=== PATIENT | female | born 1995 | race Caucasian/White ===

== ENCOUNTER 2016-08-12 15:07 | Inpatient (IN) | payer MEDICAID ==
[~2016-08-12] VITALS: Ht 152.4 cm; Wt 57.2 kg
[~2016-08-12 15:07] MED LIST: nyquil; tylenol
[2016-08-12 15:13] VITALS: BP 116/71
--- NOTE | 2016-08-12 15:16 | NUR ---
Patient ambulated to bed 02.
--- NOTE | 2016-08-12 15:20 | NUR ---
PT PRESENTS TO ER W/C/O EPIGASTRIC PAIN X6 WEEKS. W/ PAIN SCALE OF 9/10 THAT RADIATES TO HER BACK.HX GERD.PT STATES SHE TOOK OMEPRAZOLE BUT DIDN'T HELP.PT VOMITTED 2X LAST NOC.PT IS AAOX4;NO ACUTE DISTRESS NOTED AT THIS TIME;DENIES CP/SOB/FEVER/COUGH.NEEDS ATTENDED;SAFETY PRECAUTION INSTITUTED;HOB ELEVATED; MADE AWARE OF PT'S CONDITION.
--- NOTE | 2016-08-12 15:38 | NUR ---
Note undone in EDM - 08/12/16 at 1540 by DHEERAJ Patient discharged with v/s stable. Written and verbal after care instructions given and explained. Patient alert, oriented and verbalized understanding of instructions. Ambulatory with steady gait. All questions addressed prior to discharge. ID band removed. Patient advised to follow up with PMD. Rx of TAMIFLU AND ZOFRAN given. Patient educated on indication of medication including possible reaction and side effects. Opportunity to ask questions provided and answered.ENCOURAGED PT TO INCREASE FLUID INTAKE AND PT AGREED TO IT.
--- NOTE | 2016-08-12 15:51 | NUR ---
PT LYING ON BED COMFORTABLY;NO ACUTE DISTRESS NOTED AT THIS TIME;WILL CONTINUE TO MONITOR PT.
--- NOTE | 2016-08-12 15:57 | NUR ---
Dr. Park evaluating patient at bedside.
[2016-08-12] MEDS ORDERED: KETOROLAC 60 MG/2 ML VIAL IM ONE (16:05)
[2016-08-12] MEDS ORDERED: ONDANSETRON 4 MG ODT PO ONE (16:05)
[2016-08-12] MEDS ORDERED: FAMOTIDINE 20 MG TAB PO ONE (16:05)
--- NOTE | 2016-08-12 17:26 | NUR ---
US AT BEDSIDE
--- NOTE | 2016-08-12 17:47 | NUR ---
CALLED [facility] TO GIVE REPORT.THEY WILL CALL BACK.
--- NOTE | 2016-08-12 17:55 | NUR ---
Patient will be admitted to care of DR AGGARWAL. Admited to [facility]. Will go to room 112 B. Belongings list completed. Report to MOIZ PADRON.
[2016-08-12] MEDS ORDERED: LORazepam 2 MG/ML VIAL IVP PRN (19:30)
[2016-08-12] MEDS: DEXT 5% /NACL 0.9% 1,000 ML IV SCH (19:30)
[2016-08-12] MEDS ORDERED: ONDANSETRON 4 MG/2 ML VIAL IVP PRN (19:30)
[2016-08-12 19:35] VITALS: BP 99/54
--- NOTE | 2016-08-12 19:35 | NUR ---
Admitted from ER TO MED SURGICAL UNIT, with chief complaint of ABDOMINAL PAIN FOR 2 DAYS, 20 y/o ,Female, Cooperative, AWAKE, A/OX4. RESPIRATION EVEN AND UNLABORED, ABDOMEN WITH POSITIVE BOWEL SOUNDS ON ALL QUADRANTS. SALINE LOCK AT THE LEFT AC G20 PATENT AND INTACT. HEAD TO TOE ASSESSMENT DONE WITH CHARGE NURSE DESIREE, SKIN INTACT. oriented to call light, bed, phone,television, bathroom, smoking policy,visiting hours, procedures, ID bracelet on. Belongings list checked. PAIN IN THE ABDOMEN 07/17, WILL MEDICATE ORDERED. PLAN OF CARE FOR THE SHIFT DISCUSSED. VERBALIZED UNDERSTANDING.
--- NOTE | 2016-08-12 20:00 | NUR ---
Patient's Plan of Care was discussed and reviewed with RAPHAEL: AMILCAR.
[2016-08-12 22:37] VITALS: BP 107/61
[2016-08-12] MEDS: MORPHINE SULFATE 2 MG/ML SYR IVP PRN (22:38)
[2016-08-13] VITALS: BP 108/62
[2016-08-13 02:43] VITALS: BP 117/69
[2016-08-13] MEDS: MORPHINE SULFATE 4 MG/ML SYR IVP PRN ×5 (02:50→23:26)
[2016-08-13] MEDS: DEXT 5% /NACL 0.9% 1,000 ML IV SCH ×4 (04:29→19:30)
--- NOTE | 2016-08-13 06:21 | NUR ---
VOMITED MODERATE AMOUNT OF SOLID FOOD, MEDICATED WITH ZOFRAN 4 MG. IVP BY MOIZ ROSALES.
--- NOTE | 2016-08-13 06:51 | NUR ---
RESTING IN BED, NO N/V NOTED.
--- NOTE | 2016-08-13 07:10 | NUR ---
RECEIVED REPORT FROM NIGHT NURSE. PT IS AAOX4, PT IS ON ROOM AIR, IV TO LEFT AC 20G, NO S/S OF RESPIRATORY DISTRESS OR DISCOMFORT NOTED. PT CURRENTLY RESTING IN BED. INITIAL ASSESSMENT COMPLETED, REVIEWED PLAN OF CARE WITH PT PT VERBALIZED UNDERSTANDING, ALL SAFETY PRECAUTIONS MET, ALL NEEDS MET. CALL LIGHT WITHIN REACH. WILL CONTINUE TO MONITOR.
--- NOTE | 2016-08-13 07:10 | NUR ---
CONDITION REMAIN STABLE. ALL NEEDS ATTENDED. ENDORSED TO MOIZ GONZALEZ FOR CONTINUITY OF CARE.
[2016-08-13 08:00] VITALS: BP 126/71
--- NOTE | 2016-08-13 08:23 | NUR ---
PATIENT HAS BEEN SCREENED AND CATEGORIZED MODERATE NUTRITION RISK. PATIENT WILL BE SEEN WITHIN 3-5 DAYS OF ADMISSION. 08/15/16-08/17/[address]
--- NOTE | 2016-08-13 09:15 | NUR ---
PT CURRENTLY SLEEPING, CALL LIGHT WITHIN REACH. WILL CONTINUE TO MONITOR.
--- NOTE | 2016-08-13 11:02 | NUR ---
CHECKED IN ON PT, PT SLEEPING AT THIS TIME. FAMILY AT BEDSIDE. CALL LIGHT WITHIN REACH. WILL CONTINUE TO MONITOR.
--- NOTE | 2016-08-13 13:00 | NUR ---
CHECKED IN ON PT, PT C/O ABD PAIN 10, WILL MEDICATE PER MD ORDERS. CALL LIGHT WITHIN REACH. WILL CONTINUE TO MONITOR. Addendum: 08/13/16 at 1308 by Yolanda Ibarra RN BP 117/68 HR 92
--- NOTE | 2016-08-13 14:45 | NUR ---
PT CURRENTLY SLEEPING, FAMILY AT BEDSIDE. CALL LIGHT WITHIN REACH. WILL CONTINUE TO MONITOR.
[2016-08-13 16:00] VITALS: BP 110/71
--- NOTE | 2016-08-13 17:20 | NUR ---
DUE MEDICATION GIVEN, ASSISTED PT TO RESTROOM AND BACK TO BED , PT C/O ABD PAIN 01/14 WILL MEDICATE PER MD ORDERS. CALL LIGHT WITHIN REACH. WILL CONTINUE TO MONITOR.
[2016-08-13] MEDS: AMPICILLIN/SULBACTAM 3 GM in NACL 0.9% 100 ML IV SCH ×2 (17:22→23:27)
--- NOTE | 2016-08-13 18:45 | NUR ---
PT CURRENTLY RESTING IN BED. CALL LIGHT WITHIN REACH.
--- NOTE | 2016-08-13 19:20 | NUR ---
ENDORSED PLAN OF CARE TO NIGHT NURSE. PT IN STABLE CONDITION
--- NOTE | 2016-08-13 19:21 | NUR ---
RECD. RESTING IN BED, AWAKE, A/OX4. RESPIRATION EVEN AND UNLABORED. WATCHING TV. IV OF D5NS AT 125 ML/HR INFUSING, LEFT AC G 20. NPO, AWARE OF PLAN ERCP FOR TOMORROW. PLAN OF CARE FOR THE SHIFT DISCUSSED. VERBALIZED UNDERSTANDING. DENIES PAIN 0/10.
[2016-08-14] VITALS: BP 106/64
--- NOTE | 2016-08-14 | NUR ---
NPO PAST MIDNIGHT FOR ERCP.
--- NOTE | 2016-08-14 01:54 | NUR ---
Patient's Plan of Care was discussed and reviewed with SUBSTATION OPERATOR APPRENTICE: AMILCAR MCCRAY
[2016-08-14] MEDS: DEXT 5% /NACL 0.9% 1,000 ML IV SCH ×4 (02:33→17:48)
[2016-08-14 05:29] VITALS: BP 106/62
[2016-08-14] MEDS: MORPHINE SULFATE 2 MG/ML SYR IVP PRN ×2 (05:30→09:25)
[2016-08-14] MEDS: AMPICILLIN/SULBACTAM 3 GM in NACL 0.9% 100 ML IV SCH ×4 (05:33→23:22)
--- NOTE | 2016-08-14 07:25 | NUR ---
TAKEN TO OR FOR ERCP VIA BED, ACCOMPANIED BY OR NURSE. CONDITION REMAIN STABLE.
[2016-08-14] MEDS ORDERED: PROPOFOL 200 MG/20 ML VIAL IV ONE (07:51)
[2016-08-14] MEDS ORDERED: ONDANSETRON 4 MG/2 ML VIAL IVP PRN (08:15)
[2016-08-14] MEDS ORDERED: HYDROmorphone 1 MG/ML AMP IVP PRN (08:15)
[2016-08-14] MEDS ORDERED: ONDANSETRON 4 MG/2 ML VIAL ONE (08:40)
[2016-08-14 09:15] VITALS: BP 111/68
--- NOTE | 2016-08-14 09:15 | NUR ---
PT RETURNED FROM ERCP PROCEDURE. SBAR RECEIVED FROM OR NURSE. PT C/O ABDOMINAL PAIN, WILL MEDICATE ORDERED. VITAL SIGNS STABLE. NO S/S OF RESPIRATORY DISTRESS. IV SITE PATENT AND INTACT. AAOX4. CALL LIGHT WITHIN REACH. SAFETY MEASURES ENSURED. WILL CONTINUE TO MONITOR.
--- NOTE | 2016-08-14 11:02 | NUR ---
DR. ARAGON MADE AWARE OF SURGICAL CONSULTATION.
--- NOTE | 2016-08-14 12:56 | NUR ---
PT RESTING IN BED. C/O ABDOMINAL PAIN. WILL MEDICATE ORDERED.
[2016-08-14] MEDS: MORPHINE SULFATE 4 MG/ML SYR IVP PRN ×3 (13:12→22:38)
--- NOTE | 2016-08-14 14:30 | NUR ---
PT SLEEPING. NO S/S OF ACUTE DISTRESS. CALL LIGHT WITHIN REACH. WILL CONTINUE TO MONITOR.
[2016-08-14 16:00] VITALS: BP 104/52
--- NOTE | 2016-08-14 16:00 | NUR ---
PT HAS LOW GRADE FEVER 100.2. PAGED. PT RESTING IN BED. NO S/S OF ACUTE DISTRESS.
[2016-08-14] MEDS ORDERED: ACETAMINOPHEN 650 MG SUPP RC PRN (16:55)
--- NOTE | 2016-08-14 17:10 | NUR ---
RECHECKED PATIENTS TEMPERATURE. 99.4, RESTING IN BED. NO S/S OF ACUTE DISTRESS.
--- NOTE | 2016-08-14 17:15 | NUR ---
SPOKE WITH DR. AGGARWAL REGARDING FEVER AND LABS. NEW ORDERS RECEIVED, WILL CONTINUE TO MONITOR.
[2016-08-14] MEDS ORDERED: KCL 20 MEQ/WATER INJ PREMIX 100 ML IV SCH (17:30)
--- NOTE | 2016-08-14 19:15 | NUR ---
RECEIVED REPORT FROM RN NEREIDA LUO AT BEDSIDE. INITIAL ASSESSMENT COMPLETED. PT AAOX4. PT AMBULATORY, PT HAS IV TO LEFT AC G 20; ASYMPTOMATIC, PATENT AND INTACT INFUSING FLUIDS WELL. PT'S SKIN IS INTACT. PT DENIES PAIN OR DISCOMFORT AT THIS TIME. PT WAS MEDICATED FOR PAIN EARLIER BY DAY SHIFT NURSE. ORIENTED PT TO ROOM AND SURROUNDINGS AND USE OF CALL LIGHT. EXPLAINED PLAN OF CARE TO PT AND SHE VERBALIZES UNDERSTANDING. WILL CONTINUE TO MONITOR PT.
--- NOTE | 2016-08-14 19:16 | NUR ---
ENDORSED PLAN OF CARE TO MOIZ WALLS AT PT BEDSIDE. PT RESTING IN BED. NO S/S OF ACUTE DISTRESS.
[2016-08-14] MEDS ORDERED: DEXTROSE 50% 50 ML SYR IVP PRN (19:25)
[2016-08-14] MEDS ORDERED: INSULIN LISPRO SLIDING SCALE 100 UNITS/ML VIAL SUBQ PRN (19:25)
--- NOTE | 2016-08-14 19:25 | NUR ---
DR. JASEN Leo IN TO SEE PT. WILL FOLLOW UP ON ORDERS.
[2016-08-14] MEDS: BLOOD GLUCOSE MONITORING 1 DEV DEV FS SCH (21:17)
--- NOTE | 2016-08-14 22:33 | NUR ---
PT COMPLAINING OF ABDOMINAL PAIN 01/14. VS STABLE, WILL MEDICATE ORDERED.
--- NOTE | 2016-08-14 22:43 | NUR ---
PT MEDICATED FOR PAIN. VS: BP 116/67, HR 78, 02 98% T 98.3.
--- NOTE | 2016-08-14 22:52 | NUR ---
RECEIVED REPORT FROMTITI RN, FOR CONTINUITY OF CARE. PATIENT RESTING IN BED. NO RESPIRATORY DISTRESS, SOB, OR DISCOMFORT. CALL LIGHT LEFT WITHIN REACH, WILL CONTINUE TO MONITOR.
--- NOTE | 2016-08-14 22:52 | NUR ---
ENDORSED PT IN STABLE CONDITION TO MOIZ ROSALES FOR CONTINUITY OF CARE.
[2016-08-15] VITALS: BP 110/68
--- NOTE | 2016-08-15 00:56 | NUR ---
PATIENT IN BED, SLEEPING. NO RESPIRATORY DISTRESS, SOB, OR DISCOMFORT. CALL LIGHT LEFT WITHIN REACH, WILL CONTINUE TO MONITOR.
--- NOTE | 2016-08-15 03:06 | NUR ---
PATIENT ASLEEP. NO RESPIRATORY DISTRESS, SOB, OR DISCOMFORT. CALL LIGHT LEFT WITHIN REACH, WILL CONTINUE TO MONITOR.
[2016-08-15] MEDS: DEXT 5% /NACL 0.9% 1,000 ML IV SCH ×3 (03:47→20:15)
[2016-08-15] MEDS: MORPHINE SULFATE 4 MG/ML SYR IVP PRN ×3 (05:24→14:42)
--- NOTE | 2016-08-15 05:35 | NUR ---
DR. MARGO VIGIL, SEEN PT. AND CHECK PT. CHART. Addendum: 08/15/16 at 1827 by Cordell Hargrove LVN WRONG ENTRY: ENTERED WRONG TIME.
[2016-08-15] MEDS: AMPICILLIN/SULBACTAM 3 GM in NACL 0.9% 100 ML IV SCH ×3 (06:13→17:44)
[2016-08-15] MEDS: BLOOD GLUCOSE MONITORING 1 DEV DEV FS SCH ×3 (06:14→16:34)
--- NOTE | 2016-08-15 06:16 | NUR ---
PATIENT SLEEPING. NO RESPIRATORY DISTRESS, SOB, OR DISCOMFORT. CALL LIGHT LEFT WITHIN REACH, WILL CONTINUE TO MONITOR.
--- NOTE | 2016-08-15 07:03 | NUR ---
ASSUMED CONTINUITY OF CARE. NO SIGNS AND SYMPTOMS OF ACUTE DISTRESS NOTED. INITIAL ASSESSMENT DONE. KEEP COMFORTABLE ON BED. EXPLAINED DIAGNOSIS, PLAN OF CARE, PAIN MANAGEMENT TEACHING, USE OF CALL LIGHT/BED/TV/BATHROOM. VERBALIZED UNDERSTANDING. CALL LIGHT WITHIN REACH.
--- NOTE | 2016-08-15 07:03 | NUR ---
REPORT GIVEN TO DAY NURSEJAXON. PATIENT RESTING IN BED, STABLE. NO RESPIRATORY DISTRESS, SOB, OR DISCOMFORT. ALL NEEDS ATTENDED TO DURING SHIFT, CALL LIGHT LEFT WITHIN REACH.
--- NOTE | 2016-08-15 07:04 | NUR ---
Patient's Plan of Care was discussed and reviewed with BRACELET MAKER NOVELTY: JAXON Sen
[2016-08-15 08:00] VITALS: BP 110/66
[2016-08-15 10:05] VITALS: BP 109/68
[2016-08-15 12:00] VITALS: BP 109/65
[2016-08-15 14:25] VITALS: BP 108/61
--- NOTE | 2016-08-15 17:35 | NUR ---
DR. ARAGON CAME, SEEN PT., AND CHECKED PT. CHART.
[2016-08-15] MEDS ORDERED: POTASSIUM CHLORIDE 10 MEQ TABER PO SCH (19:05)
--- NOTE | 2016-08-15 19:08 | NUR ---
BEDSIDE REPORT GIVEN TO MURIEL HERNÁNDEZ -MOIZ. IVF INFUSING WELL. IN STABLE CONDITION.
--- NOTE | 2016-08-15 19:30 | NUR ---
RECEIVED REPORT FROM AMANDA CLAIMS SERVICE ADJUSTOR AT BEDSIDE, PATIENT IS RESTING IN BED WITH VISITOR AT BEDSIDE, PATIENT STATED SHE WASNT ABLE TO TOLERATE HER FOOD WELL BECAUSE OF THE SALAD DRESSING BUT NO NAUSEA OR VOMITING AT THIS TIME, PATIENT IS ON ROOM AIR, NO SOB OR SIGN OF DISTRESS AT THIS TIME, IV IS TO LAC 20G PATENT AND INTACT, WITH IVF INFUSING WELL. PATIENT C/O PAIN, WILL ADMINISTER PAIN MEDS PER MD ORDER. DISCUSSED PLAN OF CARE WITH PATIENT, PATIENT VERBALIZED UNDERSTANDING, SAFETY MEASURES CHECKED, CALL LIGHT WITHIN REACH. WILL CONTINUE TO MONITOR.
[2016-08-15] MEDS ORDERED: cefTRIAXone 1,000 MG VIAL ONE (19:59)
[2016-08-15] MEDS: MORPHINE SULFATE 2 MG/ML SYR IVP PRN (20:14)
--- NOTE | 2016-08-15 20:19 | NUR ---
PM MEDS ADMINISTERED, PATIENT TOLERATED WELL, DR BLEVINS WAS IN TO SEE PATIENT. CALL LIGHT WITHIN REACH. WILL CONTINUE TO MONITOR
--- NOTE | 2016-08-15 22:05 | NUR ---
PATIENT RESTING IN BED, NO SIGN OF DISTRESS, CALL LIGHT WITHIN REACH. WILL CONTINUE TO MONITOR.
[2016-08-16] VITALS: BP 109/65
[2016-08-16] MEDS: AMPICILLIN/SULBACTAM 3 GM in NACL 0.9% 100 ML IV SCH ×5 (00:01→23:54)
[2016-08-16] MEDS: MORPHINE SULFATE 2 MG/ML SYR IVP PRN ×3 (00:32→10:18)
--- NOTE | 2016-08-16 00:45 | NUR ---
PATIENT RESTING IN BED, PATIENT C/O PAIN, MEDICATED PER MD ORDER, VITAL SIGNS STABLE, CALL LIGHT WITHIN REACH. WILL CONTINUE TO MONITOR.
--- NOTE | 2016-08-16 03:25 | NUR ---
PATIENT SLEEPING, NO SOB OR SIGN OF DISTRESS AT THIS TIME, CALL LIGHT WITHIN REACH. WILL CONTINUE TO MONITOR.
[2016-08-16] MEDS: DEXT 5% /NACL 0.9% 1,000 ML IV SCH ×3 (03:38→19:30)
--- NOTE | 2016-08-16 06:34 | NUR ---
PATIENT SLEEPING, NO SOB OR SIGN OF DISTRESS,CALL LIGHT WITHIN REACH. WILL CONTINUE TO MONITOR.
--- NOTE | 2016-08-16 07:11 | NUR ---
ENDORSED REPORT TO DAY PROFESSOR OF ASTRONOMY, PATIENT IN STABLE CONDITION.
--- NOTE | 2016-08-16 07:12 | NUR ---
Patient's Plan of Care was discussed and reviewed with TECHNICIAN ASSISTANT: JAXON Soria
[2016-08-16 08:00] VITALS: BP 109/54
[2016-08-16] MEDS ORDERED: ACETAMINOPHEN 325 MG TAB PO PRN (11:20)
[2016-08-16 12:00] VITALS: BP 107/66
--- NOTE | 2016-08-16 12:00 | NUR ---
VITALS SIGNS STABLE. NO C/O PAIN. WILL MONITOR.
[2016-08-16] MEDS: HYDROcodone/APAP 5/325 MG 1 TAB TAB PO PRN (15:18)
--- NOTE | 2016-08-16 16:40 | NUR ---
SEEN SLEEPING WELL. NO DIFFICULTY BREATHING NOTICED. CALL LIGHT WITHIN REACH.
--- NOTE | 2016-08-16 19:02 | NUR ---
DR. ARAGON CALLED BACK, GAVE T.O. FOR OBTAIN CONSENT FOR LAPAROSCOPIC CHOLECYSTECTOMY POSSIBLE OPEN POSSIBLE CHOLANGIOGRAM 08/17/16, AND NPO AFTER MIDNIGHT, READ BACK AND VERIFIED. INFORMED CHARGE NURSE KATINA MCCURDY.
--- NOTE | 2016-08-16 19:12 | NUR ---
BEDSIDE REPORT GIVEN TO MURIEL HERNÁNDEZ -MOIZ. IVF INFUSING WELL. IN STABLE CONDITION. ALSO ENDORSED ABOUT DR. ARAGON ORDER OF LAPAROSCOPIC CHOLECYSTECTOMY POSSIBLE OPEN POSSIBLE CHOLANGIOGRAM 08/17/16 AND NPO AFTER MIDNIGHT.
--- NOTE | 2016-08-16 19:30 | NUR ---
RECEIVED REPORT FROM AMANDA CUSTOMER STRATEGY MANAGER, PATIENT IS AAOX4 SITTING UP IN BED WITH VISITOR AT BEDSIDE, PATIENT IS ON ROOM AIR, NO SOB OR SIGN OF DISTRESS AT THIS TIME, SKIN IS INTACT, IV INFUSING WELL, PATENT AND INTACT, PATIENT DENIES PAIN AT THIS TIME, DISCUSSED PLAN OF CARE WITH PATIENT, PATIENT VERBALIZED UNDERSTANDING, CALL LIGHT WITHIN REACH, WILL CONTINUE TO MONITOR.
--- NOTE | 2016-08-16 19:45 | NUR ---
PER REPORT FROM DAY RADIO OPERATOR GROUND, PATIENT DID NOT WANT TO SIGN CONSENT FOR POSSIBLE PROCEDURE. CONFIRMED WITH PATIENT, PATIENT STATED SHE WANTED TO WAIT TO TALK TO THE DR BEFORE SHE SIGNS IT.
[2016-08-16 20:00] VITALS: BP 106/66
[2016-08-16] MEDS: HYDROcodone/APAP 10/325 MG 1 TAB TAB PO PRN (21:42)
--- NOTE | 2016-08-16 21:50 | NUR ---
PATIENT C/O PAIN , ADMINISTERED PAIN MED PER MD ORDER, NO SOB OR SIGN OF DISTRESS AT THIS TIME, CALL LIGHT WITHIN REACH. WILL CONTINUE TO MONITOR.
--- NOTE | 2016-08-17 00:20 | NUR ---
PATIENT UP RESTING IN BED, NO SOB OR SIGN OF DISTRESS AT THIS TIME, CALL LIGHT WITHIN REACH. WILL CONTINUE TO MONITOR.
--- NOTE | 2016-08-17 01:29 | NUR ---
PATIENT SLEEPING, NO SOB OR SIGN OF DISTRESS AT THIS TIME, CALL LIGHT WITHIN REACH. WILL CONTINUE TO MONITOR.
[2016-08-17 04:00] VITALS: BP 98/56
[2016-08-17] MEDS: DEXT 5% /NACL 0.9% 1,000 ML IV SCH ×3 (04:05→20:35)
--- NOTE | 2016-08-17 04:21 | NUR ---
PATIENT SLEEPING, NO SOB OR SIGN OF DISTRESS, VITAL SIGNS STABLE, CALL LIGHT WITHIN REACH. WILL CONTINUE TO MONITOR.
[2016-08-17] MEDS: AMPICILLIN/SULBACTAM 3 GM in NACL 0.9% 100 ML IV SCH ×4 (05:17→23:35)
[2016-08-17] MEDS: HYDROcodone/APAP 5/325 MG 1 TAB TAB PO PRN ×2 (05:45→20:44)
--- NOTE | 2016-08-17 07:26 | NUR ---
ENDORSED REPORT TO DAY RN AT BEDSIDE, PATIENT IN STABLE CONDITION.
--- NOTE | 2016-08-17 07:30 | NUR ---
RECEIVED PT RESTING COMFORTABLY IN BED, AAOX4, ABLE TO VERBALIZE NEEDS; NO COMPLAINTS OF PAIN, N/V, OR S/S ACUTE DISTRESS AT THIS TIME. PT WANTS TO SPEAK WITH SURGEON PRIOR TO SIGNING CONSENT FOR DR MARGO PETERS AWARE PER RN FACULTY RN. ROUTINE/PLAN OF CARE DISCUSSED AND REVIEWED, PT VERBALIZES UNDERSTANDING AND COMPLIANCE. IVF INFUSING TO LEFT AC, SITE ASYMPTOMATIC. SAFETY PRECAUTIONS OBSERVED AND MAINTAINED, ENCOURAGED PT TO CALL FOR ASSISTANCE NEEDED.
[2016-08-17 08:00] VITALS: BP 103/70
--- NOTE | 2016-08-17 10:00 | NUR ---
CONDITION REMAINS STABLE, PT RESTING QUIETLY IN BED. EDUCATION HANDOUT GIVEN TO PT. WILL CONTINUE TO MONITOR.
--- NOTE | 2016-08-17 11:20 | NUR ---
PAGED DR ARAGON AT THIS TIME.
--- NOTE | 2016-08-17 11:40 | NUR ---
PT SPOKE WITH DR ARAGON BY TELEPHONE. CONSENT SIGNED FOR ROSA WINKLER.
[2016-08-17] MEDS: BUPIVACAINE-MPF/EPI 0.25% 30 ML VIAL INJ ONE ×2 (11:58→16:32)
--- NOTE | 2016-08-17 12:11 | NUR ---
PT TAKEN TO OR AT THIS TIME IN STABLE CONDITION. SCHEDULED UNASYN IVPB GIVEN TO GENERAL MACHINISTMOIZ HORAN.
[2016-08-17] MEDS ORDERED: ROCURONIUM 50 MG/5 ML VIAL IV ONE (12:28)
[2016-08-17] MEDS ORDERED: LIDOCAINE 2% 100 MG/5 ML SYR IVP ONE (12:28)
[2016-08-17] MEDS ORDERED: KETOROLAC 30 MG/ML VIAL IVP ONE (12:28)
[2016-08-17] MEDS ORDERED: GLYCOPYRROLATE 0.2 MG/ML VIAL IV ONE (12:28)
[2016-08-17] MEDS ORDERED: DEXAMETHASONE 4 MG/ML VIAL IVP ONE (12:28)
[2016-08-17] MEDS ORDERED: SUCCINYLCHOLINE CHLORIDE 200 MG/10 ML VIAL IV ONE (12:28)
[2016-08-17] MEDS ORDERED: NEOSTIGMINE 1:1000 10 MG/10 ML VIAL IM ONE (12:28)
[2016-08-17] MEDS ORDERED: ONDANSETRON 4 MG/2 ML VIAL IVP ONE (12:28)
[2016-08-17] MEDS ORDERED: SEVOFLURANE 250 ML BTL INH ONE (12:28)
[2016-08-17] MEDS ORDERED: PROPOFOL 200 MG/20 ML VIAL IV ONE (12:28)
[2016-08-17] MEDS ORDERED: MIDAZOLAM 2 MG/2 ML VIAL ONE (12:37)
[2016-08-17] MEDS ORDERED: fentaNYL 0.05 MG/ML VIAL ONE (12:37)
[2016-08-17] MEDS ORDERED: HYDROmorphone 1 MG/ML AMP IVP PRN (13:00)
[2016-08-17] MEDS ORDERED: ONDANSETRON 4 MG/2 ML VIAL IVP PRN ×2 (13:00→13:55)
[2016-08-17] MEDS: HYDROmorphone PFS 2 MG/ML SYR ONE ×4 (14:20→14:50)
--- NOTE | 2016-08-17 14:27 | NUR ---
08/17/16 RD INITIAL ASSESSMENT COMPLETED PLEASE REFER TO NUTRITION ASSESSMENT UNDER CARE ACTIVITY FOR ESTIMATED NUTRITIONAL NEEDS. RD RECOMMENDATIONS: 1. CONTINUE NPO MEDICALLY APPROPRIATE PER MD. 2. IF/WHEN PT IS MEDICALLY STABLE TO BEGIN NUTRITION, CONSIDER REGULAR DIET. 3. RD WILL F/U 3-5 DAYS; MODERATE RISK. TREASURE REYES, RD
--- NOTE | 2016-08-17 14:45 | NUR ---
PT IS NOT CURRENTLY IN ROOM TO DO THE IS. WILL FOLLOW.
--- NOTE | 2016-08-17 15:05 | NUR ---
PT RETURNED FROM OR AT THIS TIME S/P LAP CATHI, AAOX4, VSS. ABD INCISIONSx4, DRESSINGS CLEAN AND DRY. DISCUSSED NARCOTIC AND POST-OP EDUCATION. SAFETY PRECAUTIONS MAINTAINED, ENCOURAGED PT TO CALL NEEDED. WILL CONTINUE TO CLOSELY MONITOR.
[2016-08-17 16:00] VITALS: BP 110/66
[2016-08-17] MEDS: MORPHINE SULFATE 4 MG/ML SYR IVP PRN (16:09)
--- NOTE | 2016-08-17 17:45 | NUR ---
PT RESTING QUIETLY IN BED. ADMINISTERED ROUTINE UNASYN IVPB ORDERED. SIGNIFICANT OTHER AT BEDSIDE.
--- NOTE | 2016-08-17 18:00 | NUR ---
PAGED DR DEL RIO AT THIS TIME IN REGARDS TO UNASYN IVPB RENEWAL. PT SEEN BY DR AGGARWAL, DISCUSSED PT CONDITION AND PLAN OF CARE AT BEDSIDE.
--- NOTE | 2016-08-17 19:13 | NUR ---
CONDITION STABLE, ENDORSED PLAN OF CARE TO SCRIPT COORDINATOR RN.
--- NOTE | 2016-08-17 19:30 | NUR ---
RECEIVED REPORT FROM DAY NURSEARON. PATIENT RESTING IN BED, SIGNIFICANT OTHER AT BEDSIDE. NO RESPIRATORY DISTRESS, SOB, OR DISCOMFORT. INITIAL ASSESSMENT AND BODY CHECK DONE. PATIENT IS AOX4, IV ACCESS TO LEFT AC 20G, PATENT. PATIENT HAS 4 ABDOMINAL INCISIONS, COVERED WITH BANDAGES; DRY AND INTACT. PATIENT DENIES ANY PAIN AT THIS TIME. DISCUSSED PLAN OF CARE, MEDICATION REGIMENT, AND PAIN MANAGEMENT WITH PATIENT. PATIENT VERBALIZED UNDERSTANDING. PLACED PATIENT ON SAFETY PRECAUTIONS. CALL LIGHT LEFT WITHIN REACH, WILL CONTINUE OT MONITOR.
--- NOTE | 2016-08-17 21:10 | NUR ---
AWAKE AND ALERT TOLERATED INCENTIVE SPIROMETRY (IS) PROCEDURE WELL WITHOUT INCIDENT ENCOURAGED PATIENT TO USE IS EVERY 2 HOURS WHILE AWAKE
--- NOTE | 2016-08-17 22:06 | NUR ---
PATIENT RESTING IN BED, WATCHING TELEVISION. NO RESPIRATORY DISTRESS, SOB, OR DISCOMFORT. CALL LIGHT LEFT WITHIN REACH, WILL CONTINUE TO MONITOR.
[2016-08-17] MEDS: MORPHINE SULFATE 2 MG/ML SYR IVP PRN (23:44)
[2016-08-18] VITALS: BP 111/68
--- NOTE | 2016-08-18 00:57 | NUR ---
PATIENT IN BED, SLEEPING. NO RESPIRATORY DISTRESS, SOB, OR DISCOMFORT. CALL LIGHT LEFT WITHIN REACH, WILL CONTINUE TO MONITOR.
--- NOTE | 2016-08-18 03:09 | NUR ---
PATIENT ASLEEP. NO RESPIRATORY DISTRESS, SOB, OR DISCOMFORT. CALL LIGHT LEFT WITHIN REACH, WILL CONTINUE TO MONITOR.
[2016-08-18] MEDS: DEXT 5% /NACL 0.9% 1,000 ML IV SCH ×3 (03:59→19:30)
--- NOTE | 2016-08-18 06:17 | NUR ---
PATIENT SLEEPING. NO RESPIRATORY DISTRESS, SOB, OR DISCOMFORT. CALL LIGHT LEFT WITHIN REACH, WILL CONTINUE TO MONITOR.
[2016-08-18] MEDS: MORPHINE SULFATE 4 MG/ML SYR IVP PRN ×2 (06:39→17:11)
--- NOTE | 2016-08-18 07:14 | NUR ---
REPORT GIVEN TO DAY NURSEARON. PATIENT RESTING IN BED, STABLE. NO RESPIRATORY DISTRESS, SOB, OR DISCOMFORT. ALL NEEDS ATTENDED TO DURING SHIFT, CALL LIGHT LEFT WITHIN REACH.
--- NOTE | 2016-08-18 07:30 | NUR ---
RECEIVED PT RESTING COMFORTABLY IN BED, AAOX4, ABLE TO VERBALIZE NEEDS; NO COMPLAINTS OF PAIN, N/V, OR S/S ACUTE DISTRESS AT THIS TIME. S/P LAP CATHI, DRESSINGS CLEAN AND INTACT. ROUTINE/PLAN OF CARE DISCUSSED AND REVIEWED, PT VERBALIZES UNDERSTANDING AND COMPLIANCE. IVF INFUSING TO LEFT AC, SITE ASYMPTOMATIC. SAFETY PRECAUTIONS OBSERVED AND MAINTAINED, ENCOURAGED PT TO CALL FOR ASSISTANCE NEEDED.
[2016-08-18 08:00] VITALS: BP 104/67
--- NOTE | 2016-08-18 10:00 | NUR ---
PT RESTING QUIETLY IN BED, DENIES ANY S/S DISTRESS.
[2016-08-18] MEDS: HYDROcodone/APAP 10/325 MG 1 TAB TAB PO PRN ×2 (13:14→21:52)
--- NOTE | 2016-08-18 13:15 | NUR ---
PT AMBULATED IN HALLWAY WITH STEADY GAIT; MEDICATED PT WITH NORCO PO FOR C/O ABD PAIN, SEE PAIN ASSESSMENT.
[2016-08-18 16:00] VITALS: BP 105/71
--- NOTE | 2016-08-18 19:11 | NUR ---
CONDITION STABLE, ENDORSED PLAN OF CARE TO GYPSUM ROOFER RN.
--- NOTE | 2016-08-18 19:30 | NUR ---
RECEIVED PT IN STABLE CONDITION FROM AM NURSE FOR CONTINUITY OF CARE. AWAKE,ALERT AND ORIENTED X4. MED SURG. WITH DRESSING ON THE UMBILICAL AREA AND X3 BAND AIDS ON RLQ . NO C/O PAIN AT THIS TIME. HAS IVF INFUSING WELL ON THE LT HAND#22. CLEAR AND PATENT. PLAN OF CARE DISCUSSED AND VERBALIZED UNDERSTANDING. CALL LIGHT PLACED WITHIN EASY REACH. WILL CONTINUE TO MONITOR.
[2016-08-18] MEDS ORDERED: LEVAQUIN500 M1 PO (20:16)
[2016-08-18] MEDS ORDERED: FLAGYL500 M1 PO (20:16)
[2016-08-18] MEDS ORDERED: ACETAMINOPHEN-H1 TA3 PO (20:53)
--- NOTE | 2016-08-18 21:00 | NUR ---
DR. AGGARWAL CAME WITH DISCHARGE HOME TONIGHT . VITAL SIGNS TAKEN.
[2016-08-18 21:34] VITALS: BP_SYST 109
--- NOTE | 2016-08-18 21:52 | NUR ---
PT C/O PAIN . MEDICATED ORDERED WITH NORCO.
--- NOTE | 2016-08-18 22:30 | NUR ---
V/S STABLE. NO MORE C/O PAIN AT THIS TIME. DISCHARGE INSTRUCTIONS,MEDICATIONS WITH PRESCRIPTIONS GIVEN TO PT. VERBALIZED UNDERSTANDING , ALSO WITH THE APPOINTMENT TO PCP DR. MENENDEZ IN 1 WEEK. PICTURES OF INCISIONS TAKEN BY AM NURSE. HOME BY WHEELCHAIR TO FAMILY CAR IN STABLE CONDITION.
[2016-08-19] MEDS ORDERED: AMPICILLIN/SULBACTAM 3 GM in NACL 0.9% 100 ML IV SCH
== END 2016-08-18 22:30 | disposition home or self-care (01) | DRG 951 ==
LOC: MED 15:07 → MTU 17:39
PROVIDERS: ADMIT Preventive Medicine Preventive Medicine/Occupational Environmental Medicine; ATTEND Preventive Medicine Preventive Medicine/Occupational Environmental Medicine
PROC: BF101ZZ Fluoroscopy of Bile Ducts using Low Osmolar Contrast (ICD-10-PCS; 2016-08-12)
PROC: 0FC98ZZ Extirpation of Matter from Common Bile Duct, Via Natural or Artificial Opening Endoscopic (ICD-10-PCS; principal; 2016-08-14 07:30)
PROC: 0FT44ZZ Resection of Gallbladder, Percutaneous Endoscopic Approach (ICD-10-PCS; 2016-08-17)
PROC: BF001ZZ Plain Radiography of Bile Ducts using Low Osmolar Contrast (ICD-10-PCS; 2016-08-17)
DX: O99.63 Diseases of the digestive system complicating the puerperium (principal); R65.11 Systemic inflammatory response syndrome (SIRS) of non-infectious origin with acute organ dysfunction; E43 Unspecified severe protein-calorie malnutrition; K85.10 Biliary acute pancreatitis without necrosis or infection; K80.66 Calculus of gallbladder and bile duct with acute and chronic cholecystitis without obstruction; E87.5 Hyperkalemia; O90.89 Other complications of the puerperium, not elsewhere classified; E88.09 Other disorders of plasma-protein metabolism, not elsewhere classified; E83.52 Hypercalcemia; K21.9 Gastro-esophageal reflux disease without esophagitis; D64.9 Anemia, unspecified; O25.3 Malnutrition in the puerperium; O90.81 Anemia of the puerperium; R74.0 Nonspecific elevation of levels of transaminase and lactic acid dehydrogenase [LDH]; R73.9 Hyperglycemia, unspecified; Z68.24 Body mass index [BMI] 24.0-24.9, adult; Z98.890 Other specified postprocedural states; Z90.49 Acquired absence of other specified parts of digestive tract

== ENCOUNTER 2016-08-27 17:05 | Emergency (ER) | payer MEDICAID ==
[~2016-08-27] VITALS: Ht 154.9 cm; Wt 56.2 kg
[~2016-08-27 17:05] MED LIST changes: +ACET-9525 PO; +LEVO500T22 PO; +METR500T1 PO; -nyquil; -tylenol
[2016-08-27 17:28] VITALS: BP 102/54
--- NOTE | 2016-08-27 20:01 | NUR ---
TO ER BED 1
--- NOTE | 2016-08-27 20:10 | NUR ---
/ BIB FAMILY FOLLOW UP FOR SUTURE REMOVAL. CHOLECYSTECTOMY 08/16/[address] JENNIFER AGGARWAL, INSTRUCTED TO RETURN WITH PMD FOR F/U--- INSTRUCTED PT TO RETURN TO ER ---SUTURES ARE NOT DISSOLVING PT C/O PAIN UMBILICAL AND EPIGASTRIC REGIONS SURGICAL INCISION SITE NO PURULENT DRAINAGE, NO REDNESS NOTED. ERMD NOTIFIED OF PATIENT STATUS.
--- NOTE | 2016-08-27 20:50 | NUR ---
EPatient being evaluated by physician at bedside.
[2016-08-27] MEDS ORDERED: BACITRACIN OINT 500 UNITS/GM PKT TP ONE (20:55)
--- NOTE | 2016-08-27 21:10 | NUR ---
Patient discharged with v/s stable. Written and verbal after care instructions given and explained. Patient alert, oriented and verbalized understanding of instructions. Ambulatory with steady gait. All questions addressed prior to discharge. ID band removed. Patient advised to follow up with PMD. Rx of BACITRACIN OINTMENT given. Patient educated on indication of medication including possible reaction and side effects. Opportunity to ask questions provided and answered.
[2016-08-27 21:11] VITALS: BP 102/62
== END 2016-08-27 21:11 | disposition home or self-care (01) ==
LOC: MED 17:05
DX: K94.09 Other complications of colostomy (principal); K21.9 Gastro-esophageal reflux disease without esophagitis; Z90.49 Acquired absence of other specified parts of digestive tract
CPT/HCPCS: 99283

== ENCOUNTER 2017-08-13 20:43 | Emergency (ER) | payer MEDICAID, OTHER ==
[~2017-08-13] VITALS: Ht 154.9 cm; Wt 57.6 kg
[~2017-08-13 20:43] MED LIST changes: +LEVO500T2 PO; -LEVO500T22 PO
[2017-08-13 21:05] VITALS: BP 119/64
--- NOTE | 2017-08-13 21:08 | NUR ---
PT.AMBULATED TO [facility]
[2017-08-13 21:51] LABS: BASOPHILS # (AUTO) 0.2 K/uL (0.00-0.22); BASOPHILS % (AUTO) 1.8 % (0.0-2.0); EOSINOPHILS # (AUTO) 0.1 K/uL (0-0.4); EOSINOPHILS % (AUTO) 0.8 % (0.0-4.0); HEMATOCRIT 42.1 % (36-48); HEMOGLOBIN 14.2 g/dL (12.0-16.0); LYMPHOCYTES # (AUTO) 1.3 K/uL (2.5-16.5); LYMPHOCYTES % (AUTO) 14.6 % (20.5-51.1); MEAN CORPUSCULAR HEMOGLOBIN 28 pg (27-31); MEAN CORPUSCULAR HGB CONC 34 g/dL (33-37); MEAN CORPUSCULAR VOLUME 84 fL (80-94); MONOCYTES # (AUTO) 0.3 K/uL (0.8-1.0); MONOCYTES % (AUTO) 3.3 % (1.7-9.3); NEUTROPHILS # (AUTO) 7.2 K/uL (1.8-7.7); NEUTROPHILS % (AUTO) 79.5 % (42.2-75.2); PLATELET COUNT (AUTO) 310 K/uL (140-450); RED BLOOD CELL COUNT(AUTO) 5.01 MIL/uL (4.20-5.40); RED CELL DISTRIBUTION WIDTH 11.7 % (11.6-13.7); WHITE BLOOD COUNT (AUTO) 9.1 K/uL (4.8-10.8)
--- NOTE | 2017-08-13 21:54 | NUR ---
PT. UNABLE TO URINATE AT THIS TIME
[2017-08-13 22:00] LABS: ANION GAP 14.4 (8-16); CARBON DIOXIDE 25.2 mmol/L (21-32); CREATININE 0.7 mg/dL (0.6-1.3); POTASSIUM 3.6 mmol/L (3.5-5.1)
[2017-08-13 22:06] LABS: ALBUMIN 3.9 g/dL (3.4-5.0); TOTAL BILIRUBIN 0.6 mg/dL (0.0-1.0)
--- NOTE | 2017-08-14 00:04 | NUR ---
PT TAKEN TO BED 11
--- NOTE | 2017-08-14 00:05 | NUR ---
Pt presents to ED with abd pain to right upper/lower quadrant that radiates to right lower back. Pain 8/10. Pt states no N/V/D at this time. Pain has been present x1 week and cannot take the pain any longer. She also c/o pressure HU 8/10 x1 week. Both abdominal pain and HU are intermittent throughout the day. VSS. ER MD aware. Continue to monitor.
--- NOTE | 2017-08-14 00:43 | NUR ---
Patient being evaluated by at bedside.
[2017-08-14] MEDS ORDERED: KETOROLAC 60 MG/2 ML VIAL IM ONE (00:45)
[2017-08-14 01:07] VITALS: BP 119/64
== END 2017-08-14 01:07 | disposition home or self-care (01) ==
LOC: MED 20:43
DX: R10.11 Right upper quadrant pain (principal); R51 Headache; K21.9 Gastro-esophageal reflux disease without esophagitis; Z90.49 Acquired absence of other specified parts of digestive tract
CPT/HCPCS: 36415; 80053; 83690; 85025; 96372; 99284; J1885; 81002; 81025

== ENCOUNTER 2018-10-09 19:31 | Emergency (ER) | payer OTHER ==
[~2018-10-09] VITALS: Ht 154.9 cm; Wt 59.9 kg
[2018-10-09 19:33] VITALS: BP 123/80
--- NOTE | 2018-10-09 19:33 | NUR ---
to bed # 03 ambulatory
--- NOTE | 2018-10-09 19:54 | NUR ---
22/F PRESENTS SELF TO ED C/O 02/14 SUDDEN ONSET CRUSHING/TIGHTNESS L SIDED CP RADIATING TO L UPPER BACK WHILE WALKING IN THE [place] 2 HRS AGO, EXACERBATED BY DEEP BREATHING, ALLEVIATED BY SITTING UPRIGHT, PT DENIES N/V, AAOX4, RR EVEN AND UNLABORED, S1/S2 PRESENTS, SKIN PINK WARM AND DRY, LUNG SOUNDS CLEAR, NSR ON MONITOR. HX: HEART MURMUR (2018), GERD DENIES RX DENIES ALCOHOL OR SMOKING, OCCASIONAL CAFFEINE AND NO DRUG ABUSE
--- NOTE | 2018-10-09 20:09 | NUR ---
Dr. Scott evaluating patient at bedside.
[2018-10-09] MEDS ORDERED: KETOROLAC 30 MG/ML VIAL IM ONE (20:15)
[2018-10-09] MEDS ORDERED: CYCLOBENZAPRINE 10 MG TAB PO ONE (20:15)
[2018-10-09] MEDS ORDERED: LORazepam 2 MG/ML VIAL IVP ONE (21:00)
[2018-10-09 21:21] LABS: BASOPHILS # (AUTO) 0.1 K/uL (0.00-0.22); BASOPHILS % (AUTO) 0.7 % (0.0-2.0); EOSINOPHILS # (AUTO) 0.2 K/uL (0-0.4); EOSINOPHILS % (AUTO) 1.8 % (0.0-4.0); HEMOGLOBIN 13.9 g/dL (12.0-16.0); LYMPHOCYTES % (AUTO) 33.2 % (20.5-51.1); MEAN CORPUSCULAR HEMOGLOBIN 29 pg (27-31); MEAN CORPUSCULAR HGB CONC 34 g/dL (33-37); MEAN CORPUSCULAR VOLUME 85.1 fL (80-94); MONOCYTES # (AUTO) 0.5 K/uL (0.8-1.0); NEUTROPHILS # (AUTO) 5.2 K/uL (1.8-7.7); NEUTROPHILS % (AUTO) 58.3 % (42.2-75.2); PLATELET COUNT (AUTO) 261 K/uL (140-450); RED BLOOD CELL COUNT(AUTO) 4.82 MIL/uL (4.20-5.40); RED CELL DISTRIBUTION WIDTH 12.3 % (11.6-13.7); WHITE BLOOD COUNT (AUTO) 8.9 K/uL (4.8-10.8)
--- NOTE | 2018-10-09 21:21 | NUR ---
PT LAYING IN BED, RR EVEN AND UNLABORED, V/S STABLE, FAMILY AT BEDSIDE, PT C/O PRESISTENT PAIN, ADMINISTERED ATIVAN IVP, WITH EDUCATION, PT VERBALIZED UNDERSTANDING, VERBALIZED WELL, ALL NEEDS MET.
[2018-10-09 21:37] LABS: ALBUMIN 3.7 g/dL (3.4-5.0); ANION GAP 10.2 (8-16); CARBON DIOXIDE 28.4 mmol/L (21-32); CREATININE 0.6 mg/dL (0.6-1.3); POTASSIUM 3.6 mmol/L (3.5-5.1); TOTAL BILIRUBIN 0.3 mg/dL (0.0-1.0)
[2018-10-09] MEDS ORDERED: MORPHINE SULFATE 4 MG/ML SYR IVP ONE (21:45)
--- NOTE | 2018-10-09 22:08 | NUR ---
Dr. Scott at bedside
[2018-10-09] MEDS ORDERED: ONDANSETRON 4 MG/2 ML VIAL IVP ONE ×2 (22:20→22:55)
--- NOTE | 2018-10-09 22:42 | NUR ---
PT WENT TO CT VIA WHEELCHAIR
--- NOTE | 2018-10-09 23:00 | NUR ---
PT VOMITED WITH MODERATE AMOUNT EMESIS, VSS. PT CLEANED, GOWN CHANGED. DR COLIN MADE AWARE.
[2018-10-10 00:01] VITALS: BP 99/53
--- NOTE | 2018-10-10 00:01 | NUR ---
Patient discharged with v/s stable. Written and verbal after care instructions given and explained. Patient alert, oriented and verbalized understanding of instructions. Wheel Chair Assisted with to car, ACCOMPANIED BY SIGNIFICANT OTHER. All questions addressed prior to discharge. ID band removed. Patient advised to follow up with PMD. Rx of IBUPROFEN given. Patient educated on indication of medication including possible reaction and side effects. Opportunity to ask questions provided and answered.
== END 2018-10-10 00:01 | disposition home or self-care (01) ==
LOC: MED 19:31
DX: R07.89 Other chest pain (principal); R74.0 Nonspecific elevation of levels of transaminase and lactic acid dehydrogenase [LDH]; J98.09 Other diseases of bronchus, not elsewhere classified; K21.9 Gastro-esophageal reflux disease without esophagitis; Z90.49 Acquired absence of other specified parts of digestive tract; Z79.2 Long term (current) use of antibiotics; Z79.891 Long term (current) use of opiate analgesic; Z79.899 Other long term (current) drug therapy
CPT/HCPCS: 36415; 71045; 71250; 74176; 80053; 81025; 83690; 84484; 85025; 85379; 93005; 96372; 96374; 96375; 99284; J1885; J2060; J2270; J2405; Q0092

== ENCOUNTER 2018-12-20 04:10 | Emergency (ER) | payer OTHER ==
[~2018-12-20] VITALS: Ht 154.9 cm; Wt 61.2 kg
[2018-12-20 04:13] VITALS: BP 126/80
--- NOTE | 2018-12-20 04:21 | NUR ---
PT AMBULATED TO BED
[2018-12-20 04:24] VITALS: BP 126/80
--- NOTE | 2018-12-20 04:24 | NUR ---
23 Y/O F PRESENTED TO ED WITH C/O ABDOMINAL PAIN X 3 HOURS. PAIN STARTS MID ABDOMEN TO LLQ. 8/10 PAIN, BURNING. ABDOMEN NON-TENDER. DENIES N/V/D. LBM 12/19/18. DENIES FLANK PAIN OR HEMATURIA. BED IN LOWEST POSITION. BEDRAILX1 UP. ERMD NOTIFIED. WILL CONTINUE TO MONITOR.
--- NOTE | 2018-12-20 05:03 | NUR ---
PT TAKEN TO RAD VIA WHEELCHAIR
--- NOTE | 2018-12-20 05:17 | NUR ---
PT RETURNED FROM RAD.
[2018-12-20] MEDS ORDERED: KETOROLAC 30 MG/ML VIAL IM ONE (05:30)
--- NOTE | 2018-12-20 05:40 | NUR ---
Patient discharged with v/s stable. Written and verbal after care instructions given and explained. Patient alert, oriented and verbalized understanding of instructions. Ambulatory with steady gait. All questions addressed prior to discharge. ID band removed. Patient advised to follow up with PMD. Rx of Lactulose and given. Patient educated on indication of medication including possible reaction and side effects. Opportunity to ask questions provided and answered.
[2018-12-20] MEDS ORDERED: KETOROLAC 30 MG/ML VIAL ONE (05:41)
== END 2018-12-20 05:40 | disposition home or self-care (01) ==
LOC: MED 04:10
DX: R10.9 Unspecified abdominal pain (principal); K21.9 Gastro-esophageal reflux disease without esophagitis; Z79.899 Other long term (current) drug therapy
CPT/HCPCS: 74022; 81002; 81025; 96372; 99283; J1885

== ENCOUNTER 2019-05-16 22:58 | Emergency (ER) | payer OTHER ==
[~2019-05-16] VITALS: Ht 154.9 cm; Wt 63.5 kg
[2019-05-16 23:05] VITALS: BP 111/60
--- NOTE | 2019-05-16 23:05 | NUR ---
TO BED # 08 AMBULATORY
[2019-05-16] MEDS ORDERED: IBUPROFEN 800 MG TAB PO ONE (23:25)
--- NOTE | 2019-05-16 23:42 | NUR ---
23 Y/O FEMALE PRESENTS TO ED, C/O RIGHT SHOULDER PAIN 01/14. PT STATES PAIN STARTED 1 WEEK AGO, WORSENING TODAY. PT HAS LIMITED MOBILITY ON RIGHT SHOULDER. 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 PT DENIES ANY TINGLING SENSATION ON EXTREMITIES. NO MEDICATIONS TAKEN. PT ABLE TO AMBULATE WITH SLOW STEADY GAIT. PT AT STABLE CONDITION. ERMD AWARE. WILL CONTINUE TO MONITOR.
[2019-05-16 23:54] VITALS: BP 111/60
--- NOTE | 2019-05-16 23:54 | NUR ---
PT DISCHARGED WITH PAPERWORK. RX NAPROXEN. EDUCATED PT REGARDING MEDICATIONS AND S/E. EDUCATED PT REGARDING D/C DIAGNOSIS AND INSTRUCTIONS. 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 TOLD PT TO FOLLOW UP WITH PCP AND WHEN TO RETURN TO ED. PT AT STABLE CONDITION. ALL QUESTIONS ANSWERED.
== END 2019-05-16 23:54 | disposition home or self-care (01) ==
LOC: MED 22:58
DX: S46.911A Strain of unspecified muscle, fascia and tendon at shoulder and upper arm level, right arm, initial encounter (principal); K21.9 Gastro-esophageal reflux disease without esophagitis; Z79.899 Other long term (current) drug therapy; X58.XXXA Exposure to other specified factors, initial encounter; Y93.89 Activity, other specified; Y92.89 Other specified places as the place of occurrence of the external cause; Y99.8 Other external cause status
CPT/HCPCS: 99283

== ENCOUNTER 2019-05-22 15:06 | Emergency (ER) | payer OTHER ==
[~2019-05-22] VITALS: Ht 154.9 cm; Wt 65.8 kg
[2019-05-22 15:15] VITALS: BP 134/88
--- NOTE | 2019-05-22 16:44 | NUR ---
PT AMBULATED TO ER CHAIR A
--- NOTE | 2019-05-22 17:02 | NUR ---
PT TO ED WITH C/O RT SHOULDER PAIN X 1 WEEK. PT REPORTS BEING SEEN IN ED LAST WEEK DX WITH SHOULDER STRAIN AND GIVEN RX OF NAPROXEN WITHOUT RELIEF. 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 NO OBVIOUS DEFORMITY NOTED. IN CHAIR FOR MD [id number].
[2019-05-22 17:12] VITALS: BP 134/88
== END 2019-05-22 17:13 | disposition home or self-care (01) ==
LOC: MED 15:06
DX: S43.51XA Sprain of right acromioclavicular joint, initial encounter (principal); K21.9 Gastro-esophageal reflux disease without esophagitis; Z79.891 Long term (current) use of opiate analgesic; Z79.2 Long term (current) use of antibiotics; Z79.899 Other long term (current) drug therapy; X50.0XXA Overexertion from strenuous movement or load, initial encounter; Y93.89 Activity, other specified; Y92.218 Other school as the place of occurrence of the external cause; Y99.8 Other external cause status
CPT/HCPCS: 73030; 99283